=== PATIENT | female | born 1970 | race Caucasian/White ===

== ENCOUNTER 2022-03-21 16:26 | Emergency (ER) | payer BC ==
[2022-03-21] MEDS ORDERED: Ondansetron 4 MG Tab.DIS PO ONE (20:38)
[2022-03-21] MEDS ORDERED: Morphine 4 MG/ML VIAL IM ONE (20:38)
[2022-03-22 01:50] VITALS: BP 134/77; PULSE 90
== END 2022-03-21 21:03 | disposition home or self-care (01) ==
LOC: MW.ED 16:26
DX: M54.41 Lumbago with sciatica, right side (principal); Z88.2 Allergy status to sulfonamides; Z90.49 Acquired absence of other specified parts of digestive tract
CPT/HCPCS: 96372; 99283; A9270; J2270

== ENCOUNTER 2022-05-09 14:34 | Emergency (ER) | payer BC ==
[2022-05-09] MEDS ORDERED: Ketorolac 30 MG/ML SDV IM ONE (14:35)
== END 2022-05-09 17:45 | disposition left against medical advice (07) ==
LOC: MW.ED 14:34
DX: R53.83 Other fatigue (principal); R06.02 Shortness of breath; R68.83 Chills (without fever); F17.210 Nicotine dependence, cigarettes, uncomplicated; Z98.890 Other specified postprocedural states
CPT/HCPCS: 96372; 99283; J1885

== ENCOUNTER 2022-05-17 18:09 | Emergency (ER) | payer BC ==
[2022-05-17] MEDS ORDERED: Sodium Chloride 0.9% 1,000 ML IV ONE (18:43)
[2022-05-17] MEDS ORDERED: Acetaminophen 500 MG Tab PO ONE (18:45)
[2022-05-17] MEDS ORDERED: Ketorolac 30 MG/ML SDV IVPUSH ONE (18:45)
[2022-05-17] MEDS ORDERED: Albuterol/Ipratropium 3.0-0.5 MG/3 ML Neb Soln NEB ONE (18:46)
[2022-05-17] MEDS ORDERED: Iopamidol 755 Mg/ML 100 ML Bottle IV ONE (20:04)
[2022-05-17 21:12] LABS: CORONAVIRUS COVID-19 NAA POSITIVE (NEGATIVE); INFLUENZA A NAA NEGATIVE (NEGATIVE); INFLUENZA B NAA NEGATIVE (NEGATIVE)
[2022-05-17 21:44] LABS: BLOOD UREA NITROGEN,BUN 15 mg/dL (7.0-18.0); CARBON DIOXIDE,CO2 24.6 mmol/L (21.0-32.0); CHLORIDE,CL 97 mmol/L (98-107); GLUCOSE RANDOM 107 mg/dL (74-106); POTASSIUM,K 3.3 mmol/L (3.5-5.1); SODIUM,NA 135 mmol/L (136-145)
[2022-05-17 21:45] LABS: ESTIMATED GFR 103 mL/min (>60)
[2022-05-17] MEDS ORDERED: Azithromycin 250 MG Tab PO ONE (23:06)
[2022-05-18 00:06] VITALS: BP 125/89; PULSE 89
== END 2022-05-17 23:30 | disposition home or self-care (01) ==
LOC: MW.ED 18:09
DX: U07.1 COVID-19 (principal); J15.9 Unspecified bacterial pneumonia; Z88.2 Allergy status to sulfonamides; Z79.899 Other long term (current) drug therapy; Z90.49 Acquired absence of other specified parts of digestive tract
CPT/HCPCS: 0240U; 36415; 71046; 71275; 80053; 81001; 84484; 85025; 87086; 96361; 96374; 99284; A9270; J1885; J7030; Q9967; 36573; 93010; 99285; J7620-GY